=== PATIENT | male | born 1970 | race Caucasian/White ===

== ENCOUNTER → 2019-04-24 10:25 | Day surgery (SDC) | payer BC ==
[~2019-04-24 10:25] MED LIST: Buffered Lidocaine 1% SYRIN* 1 ML/SYRINGE INTRADERM ONE; Bupivacaine 0.25% SDV PF* 10 ML VIAL INJ ONE; Lactated Ringers 1000 ML Bag* 1,000 ML IV SCH; Lidocaine 1% w EPI 1:100,000* MDV 20 ML VIAL ONE; Midazolam* 1 MG/ML 2 ML VIAL (2 MG) ONE; Midazolam* 1 MG/ML 5 ML VIAL (5 MG) ONE; Naloxone* 0.4 MG/ML 1 ML VIAL IV PRN; Propofol* 10 MG/ML 20 ML BTL ONE; ceFAZolin 2 GM in NS PREMIX(*) 2 GM/100 ML BAG IVPB ONE; fentaNYL* 50 MCG/ML 2 ML VIAL (100 MCG VIAL) ONE
[2019-04-24 14:28] VITALS: BP 124/78
== END | disposition home or self-care (01) ==
LOC: OR 10:25
PROVIDERS: ATTEND Plastic Surgery
DX: C43.59 Malignant melanoma of other part of trunk (principal); K50.90 Crohn's disease, unspecified, without complications; L65.9 Nonscarring hair loss, unspecified
CPT/HCPCS: 88305; J0690; J2250; J2704; J3010; J3490